=== PATIENT | male | born 1990 | race Two or more races ===

== ENCOUNTER 2019-08-07 23:18 | Emergency (ER) | payer SELFPAY ==
[~2019-08-07] VITALS: Ht 170.2 cm; Wt 68.0 kg
[2019-08-07 23:55] LABS: Basophils # (auto) 0.1 uL; Basophils % (auto) 0.6 % (0.0-2.0); Eosinophils # (auto) 0 uL; Eosinophils % (auto) 0.2 % (0.0-7.0); Hematocrit 50.1 % (41.0-53.0); Hemoglobin 17.5 g/dL (13.5-17.5); Lymphocytes # (auto) 1.8 uL; Lymphocytes % (auto) 14.9 % (10.0-50.0); Mean Corpuscular Hemoglobin 30.9 pg (28.0-32.0); Mean Corpuscular Hgb Conc. 34.9 g/dL (32.0-36.0); Mean Corpuscular Volume 88.6 fL (80.0-100.0); Monocytes # (auto) 0.7 uL; Monocytes % (auto) 5.9 % (0.0-12.0); Neutrophils # (auto) 9.3 uL; Neutrophils % (auto) 78.4 % (37.0-80.0); Platelet Count (auto) 306 10^3/uL (140-450); Red Blood Cells 5.65 10^6/uL (4.5-5.90); Red Cell Distribution Width 13.4 % (11.8-14.3); White Blood Cell 11.9 10^3/uL (4.4-10.8)
[2019-08-08 00:11] LABS: INR 0.96 (0.9-1.15); Partial Thromboplastin Time 23.9 sec (23.64-32.05)
[2019-08-08 00:13] LABS: Albumin 4.9 g/dL (3.4-5.0); Anion Gap 11 (5-15); BUN/Creatinine Ratio 9.9; Blood Alcohol < 3.0 mg/dL (0-5); Blood Urea Nitrogen 10 mg/dL (7-18); Calcium 9.4 mg/dL (8.5-10.1); Carbon Dioxide 23 mmol/L (21-32); Chloride 105 mmol/L (98-107); GFR African American 114 mL/min; GFR Non-African American 94 mL/min; Glucose 115 mg/dL (74-106); Potassium 3.5 mmol/L (3.5-5.1); Sodium 139 mmol/L (136-145)
[2019-08-08 00:16] LABS: Alanine Aminotransferase 521 U/L (16-61); Alkaline Phosphatase 90 U/L (45-117); Aspartate Aminotransferase 109 U/L (15-37); Bilirubin, Total 0.5 mg/dL (0.2-1.0); Total Protein 8.7 g/dL (6.4-8.2)
[2019-08-08 05:00] VITALS: BP 123/80
== END 2019-08-08 06:05 | disposition home or self-care (01) ==
LOC: EDBD 23:18 → ER 23:18
DX: T58.91XA Toxic effect of carbon monoxide from unspecified source, accidental (unintentional), initial encounter (principal); Y92.89 Other specified places as the place of occurrence of the external cause
CPT/HCPCS: 36415; 36600; 70450; 71250; 72125; 80053; 80320; 82805; 85025; 85610; 85730; 93005